=== PATIENT | female | born 1950 | race Caucasian/White ===

== ENCOUNTER 2017-01-06 08:01 | Inpatient (IN) | payer MEDICARE, MEDICAID ==
[~2017-01-06] VITALS: Ht 170.2 cm; Wt 61.2 kg
[2017-01-06] VITALS (7 sets, daily range): BP systolic 84–148; BP diastolic 70–84; PULSE 94–119; RESP 16–26; O2SAT 95–98
[~2017-01-06 08:01] MED LIST: ALEN70TA2 PO; BACL10TA PO; Docusate Sodium PO; OXYB5TAB10 PO; POLY17PO6 PO; SENN-133 PO
--- NOTE | 2017-01-06 08:11 | ED.REPORT ---
HPI-General Illness Date of Service Jan 06, 2017 ED Provider: Tamar Louis Patient is a 66 year old female with a hx of MS who presents to the ED via EMS complaining of SOB onset yesterday. Associated symptoms include sore throat, cough, runny nose, and chest congestion. Pt reports that it feels like she has phlegm in her throat but cannot clear it due to her MS. She had a POX of 91% on room air when medics arrived. She denies fever, vomiting, diarrhea, dysuria, abdominal pain, rash, or any other symptoms. Nursing Notes Stated Complaint: SHORTNESS OF BREATH Chief Complaint: Respiratory Complaints Nursing Notes Reviewed: Yes Allergies: Coded Allergies: codeine (Verified Allergy, Severe, Shortness of Breath, 01/06/17) prochlorperazine (Verified Allergy, Severe, Hallucinations, 01/06/17) promethazine (Verified Allergy, Severe, Hallucinations, 01/06/17) Uncoded Allergies: Mitoxantrone (Allergy, Unknown, 05/04/03) Scheduled Alendronate Sodium (Fosamax) 70 Mg Tablet 70 MG PO Qwednesday Baclofen (Baclofen) 10 Mg Tablet 5 MG PO TID Magnesium Oxide (Magnesium Oxide) 400 Mg Tablet 400 MG PO DAILY Methylcellulose 1500CPS (Methylcellulose) 2,500 Gm Powder 2,500 GM MC DAILY Scheduled PRN Oxybutynin Chloride (Oxybutynin Chloride) 5 Mg Tablet 5 MG PO HS PRN PRN For Spasm Polyethylene Glycol 3350 (Miralax) 17 Gm Powd.pack 17 GM PO DAILY PRN PRN For Constipation To be used if no bowel movent in 2 days, and Senna is not effective. General Time Seen by MD: 08:10 Chief Complaint Breathing problem Hx Obtained From: Patient, Other family... Arrived By: Ambulance Sudden in Onset?: Yes Onset Occurred: Yesterday Symptom Duration: Since onset Recent Healthcare: Recent doctor visit Past Medical History Past Medical History Multiple sclerosis. Paraplegia. Urinary retention requiring chronic catheterization. h/o multiple UTI Osteoporosis. h/o TB in past Right hip fracture/Lateral condyle fracture (non operable) Past Surgical History multiple urologic procedures suprapubic catheter Family History Noncontributory Smoking History Never Smoker Social History Has caretake at home Other Social History: Local resident Ambulatory Status Wheelchair Review of Systems +chest congestion Full Review of Systems Constitutional: Denies: Fever Ears / Nose / Throat: Reports: Sore throat Respiratory: Reports: Non-productive cough, Shortness of breath GI: Denies: Abdominal pain, Diarrhea, Vomiting Female: Denies: Dysuria Skin: Denies Rash Allergy / Immune: Reports: Rhinorrhea Complete sys rev & neg: except as marked. Physical Exam Vital Signs Vital Signs Date Time Temp Pulse Resp B/P Pulse Ox O2 Delivery O2 Flow Rate FiO2 01/06/17 09:15 36.5 111 19 148/84 98 Nasal Cannula 3 01/06/17 08:06 37.1 119 24 144/70 95 Nasal Cannula 3 Initial VS: Reviewed, Vital signs abnormal Skin: Warm, Dry Psychiatric: Mood/affect normal, Behavior normal, Normal thought content General/Constitutional: Awake, Alert Head / Eyes: Atraumatic, Normocephalic ENT: Airway patent No pharyngeal erythema Geographical tongue Neck: Atraumatic, No adenopathy Respiratory / Chest: Atraumatic, No wheezing Coarse breath sounds on the L side Heart Rate / Rhythm: Positive: Tachycardia Abdomen: Atraumatic, Soft Neurologic: Oriented X3, Speech NL Awake, alert and appropriate Globally weak with minimal reflexes Functionally a quadriplegic due to her MS Interpretation & Diagnostics Lab Results Interpretation Result Diagram: 01/06/17 0805 01/06/17 0805 Test 01/06/17 08:05 01/06/17 08:40 01/06/17 08:47 White Blood Count 13.9th/mm3 (3.8-10.1) Red Blood Count 4.78mil/mm3 (3.90-5.20) Hemoglobin 13.6g/dL (12.0-15.6) Hematocrit 40.0% (35.0-46.0) Mean Corpuscular Volume 83.7fL (81-100) Mean Corpuscular Hemoglobin 28.5pg (27.0-35.0) Mean Corpuscular Hemoglobin Concent 34.0% (32.0-37.0) Red Cell Distribution Width 15.0% (12.3-15.4) Platelet Count 341bil/L (150-400) Neutrophils (%) (Auto) 89.5% (40-74) Lymphocytes (%) (Auto) 3.2% (14-46) Monocytes (%) (Auto) 7.1% (4-12) Eosinophils (%) (Auto) 0% (0-5) Basophils (%) (Auto) 0.1% (0-3) Sodium Level 135mEq/L (134-144) Potassium Level 4.0mEq/L (3.5-5.2) Chloride Level 97mEq/L (97-108) Carbon Dioxide Level 22mmol/L (18-29) Blood Urea Nitrogen 14mg/dL (8-27) Creatinine 0.43mg/dL (0.57-1.00) Estimat Glomerular Filtration Rate 212mL/min (>59) Glucose Level 119mg/dL (60-99) Calcium Level 9.6mg/dL (8.5-10.1) Total Bilirubin 0.4mg/dL (0.0-1.2) Aspartate Amino Transf (AST/SGOT) 38U/L (0-50) Alanine Aminotransferase (ALT/SGPT) 41U/L (0-32) Alkaline Phosphatase 116U/L (25-165) Troponin T 0.010ug/L (0.0-0.011) Pro-B-Type Natriuretic Peptide 325.8pg/mL (0-287) Total Protein 8.0g/dL (6.4-8.4) Albumin 4.0g/dL (3.4-5.0) Lactic Acid Level 0.9mmol/L (0.4-2.0) Urine Color Straw (YELLOW) Urine Appearance Slightly cloudy Urine pH 7.5 (5.0-8.0) Urine Specific [place] 1.015 (1.003-1.035) Urine Protein Tracemg/dL (NEG,TRACE) Urine Glucose (UA) Negativemg/dL (NEGATIVE) Urine Ketones Negativemg/dL (NEGATIVE) Urine Occult Blood Sm (NEGATIVE) Urine Nitrite Positive (NEGATIVE) Urine Bilirubin Negative (NEGATIVE) Urine Urobilinogen Normalmg/dL (NORMAL) Urine Leukocyte Esterase Large (NEGATIVE) Urine RBC 0-2/hpf (0-2) Urine WBC 11-50/hpf (0-5) Urine Epithelial Cells Occasional/hpf (NONE-MOD) Urine Crystals Amorphous phosphates Urine Bacteria Many/hpf (NONE-FEW) Urine Hyaline Casts None/lpf (NONE) Urine Granular Casts None seen (NONE SEEN) Urine Waxy Casts None seen (NONE SEEN) Urine Red Blood Cell Casts None seen (NONE SEEN) Urine White Blood Cell Casts None seen (NONE SEEN) Urine Mucus None seen (None Seen) Urine Trichomonas None seen (NONE SEEN) Urine Yeast None (NONE SEEN) Urinalysis Comment None Urine Culture Reflexed Indicated ECG Interpretation ECG Interpretation: Sinus tachycardia w/poor baseline Rate 111 LVH with secondary repolarization abnormality Prolonged QT interval Time: 08:34 Interpreted by: ED physician X-Ray Chest Interpretation Chest Xray Interpretation: IMPRESSION: Right lower lobe pneumonia, no pleural effusion or central mass seen. Dictated by: David Balderas M.D. on 01/06/2017 at 8:30 Approved by: David Bladeras M.D. on 01/06/2017 at 8:31 View: Portable, 1 view Interpretation / Wet Read by: Interpret - Radiologist Re-Eval/Medical Decision Med Decision/Clinical Course 66-year-old woman with multiple sclerosis who is a functional quadriplegic presents with 24 hours of worsening pulmonary symptoms and inability to clear secretions. Exam, chest x-ray, lab work all suggest pneumonia which is consistent with complaints. IV antibiotics were started. There is no evidence of sepsis. Because of her significantly compromised status due to her MS will opt for admission and IV antibiotics until she clearly is improving and can safely transition to oral antibiotics Time of Eval: 09:56 Re-Evaluation/Progress Note: Discussed plan for admission. Patient understands and agrees with plan. All questions addressed at this time. Consultation : Referral / Consult Name: Nael Lundy MD Consulted With: Hospitalist Call Returned at: 11:24 Maintenance Mechanic Helper: Will see patient, Agrees with eval, Agrees with plan, Accepts admit Note: Discussed pt's case. Accepts admit. Counseled Regarding: Diagnosis, Lab results, Need for admission Discharge & Departure Primary Impression: Pneumonia Pneumonia type: due to unspecified organism Laterality: unspecified laterality Lung location: unspecified part of lung Qualified Code: J18.9 - Pneumonia, unspecified organism Disposition: ADMITTED TO HOSPITAL Discharge Condition All VS Reviewed: Yes Condition: Stable Referrals: Sherry Lewis Attestation Portions of this note were transcribed by Lola Perrin. I, Dr. Louis personally performed the history, physical exam and medical decision-making; I reviewed and confirmed the accuracy of the information in the transcribed note. Signed by: Aaron Hidalgo, 01/06/17 copies to: Sherry Lewis Shawna L MD Jan 06, 2017 08:11 LOLA PERRIN Jan 06, 2017 09:57
[2017-01-06 08:18] LABS: BASOPHILS % (AUTO) 0.1 % (0-3); EOSINOPHILS % (AUTO) 0 % (0-5); MONOCYTES % (AUTO) 7.1 % (4-12); Mean Corpuscular Hemoglobin 28.5 pg (27.0-35.0); Mean Corpuscular Volume 83.7 fL (81-100); NEUTROPHILS % (AUTO) 89.5 % (40-74); Platelet Count 341 bil/L (150-400)
--- NOTE | 2017-01-06 08:33 | DRSVH ---
PROCEDURE: X-RAY CHEST ONE VIEW, PORTABLE ([id number]) INDICATIONS: dyspnea TECHNIQUE: One view of the chest was acquired. COMPARISON: [facility], CR, XR CHEST 1VW (PORTABLE), 02/13/2016, 12:52. [facility], CR, XR CHEST 1VW (PORTABLE), 02/13/2016, 11:41. FINDINGS: Surgical changes and devices: None. Lungs and pleura: No pleural effusions or pneumothorax. Lungs are abnormal with the right lower lob e pneumonia pattern superimposed on reduced inspiratory volume. Mediastinum: Mediastinal contours appear normal. Heart size is normal. Bones and chest wall: No suspicious bony lesions. Overlying soft tissues appear unremarkable. IMPRESSION: Right lower lobe pneumonia, no pleural effusion or central mass seen. Dictated by: David Balderas M.D. on 01/06/2017 at 8:30 Approved by: David Balderas M.D. on 01/06/2017 at 8:31
[2017-01-06 09:15] LABS: TROPONIN T 0.01 ug/L (0.0-0.011)
[2017-01-06] MEDS ORDERED: Azithromycin Inj 500 MG in Dextrose 5% w/Vial Mate 250 ML IV ONE (10:00)
[2017-01-06] MEDS ORDERED: cefTRIAXone Inj 2,000 MG in Dextrose 5% Minibag Plus 50 ML IV ONE (10:00)
[2017-01-06 10:33] LABS: APPEARANCE,URINE SLIGHTLY CLOUDY (CLEAR,HAZY); COLOR,URINE STRAW (YELLOW); OCCULT BLOOD,URINE SM (NEGATIVE); PH,URINE 7.5 (5.0-8.0); UROBILINOGEN,URINE NORMAL (NORMAL)
[2017-01-06] MEDS ORDERED: [UNRECOGNIZED DRUG - CODE] MC (11:21)
[2017-01-06] MEDS ORDERED: MAGN400T4 PO (11:21)
--- NOTE | 2017-01-06 12:16 | PCM.HPMED ---
Subjective Date of Service Jan 06, 2017 Primary Provider: Admitting Physician: Nael Lundy MD Primary Care Physician: Sherry Lewis DO Attending Physician: Nael Lundy MD Admit Status: From the Emergency Department, Admit to Green Team Chief Complaint: SOB with cough History of Present Illness: 65 year-old female with fairly long standing history of advanced multiple sclerosis with resulting paraplegia of lower extremities, decreased use of upper extremities and neurogenic bladder s/p suprapubic catheter in 2012 presenting with sore throat, productive cough, chest congestion for 1 day. She says that she felt fine Wednesday. Symptoms initially started with runny nose and sore throat Wednesday. Says that noticed increased secretions and had difficulty bringing up due to her weak cough. Denies any significant fever or chills. Denies any history of pneumonia in the past. Nonsmoker. Does not history of obstructive sleep apnea or other respiratory conditions. Does often get UTIs however those are symptomatically concurrently she denies any symptoms of suprapubic tenderness or back pain. Denies fever, vomiting, diarrhea, dysuria, abdominal pain, rash, or any other symptom Per EMS, sat at 91% on Room Air upon arrival. Chest x-ray showed right lower lobe pneumonia Was given azithromycin and ceftriaxone in the ED Review of Systems: 12 point ROS negative except that in HPI. Allergies Coded Allergies: codeine (Verified Allergy, Severe, Shortness of Breath, 01/06/17) prochlorperazine (Verified Allergy, Severe, Hallucinations, 01/06/17) promethazine (Verified Allergy, Severe, Hallucinations, 01/06/17) Uncoded Allergies: Mitoxantrone (Allergy, Unknown, 05/04/03) Home Medications Alendronate Sodium (Fosamax) 70 Mg Tablet 70 MG PO Qwednday Baclofen (Baclofen) 10 Mg Tablet 5 MG PO TID Magnesium Oxide (Magnesium Oxide) 400 Mg Tablet 400 MG PO DAILY Methylcellulose 1500CPS (Methylcellulose) 2,500 Gm Powder 2,500 GM MC DAILY Scheduled PRN Oxybutynin Chloride (Oxybutynin Chloride) 5 Mg Tablet 5 MG PO HS PRN PRN For Spasm Polyethylene Glycol 3350 (Miralax) 17 Gm Powd.pack 17 GM PO DAILY PRN PRN For Constipation To be used if no bowel movent in 2 days, and Senna is not effective. PMH Multiple sclerosis. Paraplegia. Neurogenic bladder s/p suprapubic catheter placed in 2012 h/o recurrent UTI Osteoporosis. Right hip fracture/Lateral condyle fracture (non operable) Surgical History s/p suprapubic catheter placed in 2012 Family History Father with [place] at age 68 Social History Hx Alcohol Use: No Hx Substance Use: No Hx Tobacco Use: No Smoking Status: Never Smoker Exam Vital Signs Vital Sign - Last Date Time Temp Pulse Resp B/P Pulse Ox O2 Delivery O2 Flow Rate FiO2 01/06/17 11:54 36.5 111 19 148/84 98 Nasal Cannula 3 Exam Gen: NAD, AOx4, HEENT: NCAT, PERRLA, EOMI, MMM, sclera anicteric. Neck: Soft, supple, no thyromegaly/JVD/LAD. Resp: CTAB, Dec BS RLL +Prod Cough. CV: S1 S2, RRR, No M/R/G Abd: Soft, (+) BS, NT/ND, Suprapubic Catheter- site looks c/d/i. No suprapubic tenderness. Ext: +PP, No edema. Skin: warm/dry/intact Neuro/Psych: Cooperative, appr mood/affect. CN II-XII grossly intact. No sensory deficits. +paraplegia of lower extremities, decreased strength upper extremities with hand contractures. Lab and Diagnostics Result Diagram: 01/06/1780401/06/17804 X-Rays, CTs and MRIs 01/06/17- CXR- Right lower lobe pneumonia, no pleural effusion or central mass seen 12-lead ECG ECG Interpretation: Sinus tachycardia w/poor baseline Rate 111 LVH with secondary repolarization abnormality Prolonged QT interval Time: 08:34 Interpreted by: ED physician Assessment & Plan 65 year-old female with fairly long standing history of advanced multiple sclerosis with resulting paraplegia of lower extremities, decreased use of upper extremities and neurogenic bladder s/p suprapubic catheter in 2012 p/w sore throat, productive cough, chest congestion likely due to RLL PNA per CXR. Sepsis due to Acute RLL PNA- poa, active- WBC- 13.9. HR- 119. Sx of URI. 01/06/17- CXR- Right lower lobe pneumonia, no pleural effusion or central mass seen. Productive cough. Blood Cx, Sputum Cx. Viral Panel- negative. Continue Abx- Ceftriaxone and Azithromycin for now. Follow up cx's. If clinically deteriorates, consider CT Chest Repeat CBC in am. SOB- poa, active- likely 2/2 to PNA as above. Consider PE, less likely. -Pulmonary Hygeine to mobilize secretions- IS/Acapella/RT. Dysphagia- poa, active- Pt at risk of Long QTc- poa, active. Per EKG. Avoid QT Prolonging meds. Neurogenic bladder s/p suprapubic catheter in 2012- chronic, stable. UA- +pyuria.Likely chronic colonization. - Symptoms difficult to correlate given Paraplegia. Pt says usually has abd pain or back pain which she currently denies. Pt will be getting covered for UTI with above PNA treatment. Advanced multiple sclerosis with resulting paraplegia of lower extremities, decreased use of upper extremities- chronic, stable. - Continue with hm meds. - c/w supportive care Acetaminophen for mild pain when necessary. Bowel regimen Senna and MiraLAX scheduled and PRN. Code- Full. Status- Patient is admitted under inpatient status expected length of stay greater than 2 midnights due to severity of presenting symptoms, risk of adverse events, and complexity of treatment plan. Pain Evaluation: Adequate Pain Control VTE Prophylaxis: Sub-Q Heparin (Unfractionated) Resuscitation Status: CPR: Attempt Resuscitation Time spent Greater than 45 minutes Nael Lundy MD Jan 06, 2017 12:15
[2017-01-06] MEDS ORDERED: Polyethylene Glycol (PEG) 17 Gm Powder PO PRN (12:50)
[2017-01-06] MEDS ORDERED: Alum-Mag Hydrox-Simeth 30 mL Suspension PO PRN (12:50)
--- NOTE | 2017-01-06 14:10 | NUR ---
Evaluation completed. Please go to "Notes" then click on "Assessments and Notes" (bottom left corner of screen). Then select appropriate discipline tab on top of screen.
[2017-01-06] MEDS: 0.9% Sodium Chloride 1,000 ML IV SCH ×2 (15:06→20:29)
--- NOTE | 2017-01-06 16:04 | NUR ---
ADMIT Admitted a 66/F into room 3002 following report from LUIS Varghese RN. Pt arrived via stretcher, req 4 person transfer to bed from [facility] to ensure safety and limit discomfort. Pt has advanced MS which has resulted in an inability to move LE/UE's due to contracture. Pt provided a soft call light and introduced to staff, bed/call light controls and to call staff to assist with changing channel/volume. Pt on TELE: SR in the 90's per vascular technologist. IV SL. Pt on 3L due to feeling SOB at rest, with activity, etc. She does NOT wear [address] up to eval swallow and placed pt on a strict NPO status - including medications due to high aspiration risk. Barium swallow ordered for tomorrow. Pt has a suprapubic melo in place, patent and draining kevin urine to gravity. Pt comes from home with caregivers. Bed in lowest, locked position and soft-touch call light in reach.
[2017-01-06] MEDS: Clindamycin Inj 600 MG in IV Premix 1 EACH IV SCH (16:57)
[2017-01-06] MEDS: Heparin 5,000 Unit/mL Inj SUBQ SCH (17:02)
[2017-01-07] VITALS (9 sets, daily range): BP systolic 110–150; BP diastolic 58–72; PULSE 84–107; RESP 17–20; O2SAT 93–97
[2017-01-07] MEDS: Clindamycin Inj 600 MG in IV Premix 1 EACH IV SCH ×4 (00:55→23:42)
[2017-01-07] MEDS: Heparin 5,000 Unit/mL Inj SUBQ SCH ×4 (00:55→23:42)
--- NOTE | 2017-01-07 06:18 | NUR ---
respiratory on 3L O2 via NC sating mid 90s. Pt has weak cough; no s/s of respiratory distress. Afebrile. IV ABT given per order. soft call light by pt's neck due to MS; hourly rounding done.
[2017-01-07] MEDS: Azithromycin Inj 500 MG in Dextrose 5% w/Vial Mate 250 ML IV SCH (08:20)
[2017-01-07 08:30] LABS: BASOPHILS % (AUTO) 0.1 % (0-3); EOSINOPHILS % (AUTO) 0 % (0-5); MONOCYTES % (AUTO) 6.4 % (4-12); Mean Corpuscular Hemoglobin 28.2 pg (27.0-35.0); Mean Corpuscular Volume 85.1 fL (81-100); NEUTROPHILS % (AUTO) 86.1 % (40-74); Platelet Count 300 bil/L (150-400)
[2017-01-07] MEDS: cefTRIAXone Inj 2,000 MG in Dextrose 5% Minibag Plus 50 ML IV SCH (10:22)
--- NOTE | 2017-01-07 12:42 | NUR ---
Social Work-initial assessment/multidisciplinary rounds: Data:See initial assessment. Pt is 66 y/o female who was admitted on 01/06/17 for pneumonia per H&P. Pt's insurance is [facility] and [facility] and PCP is Hailey Lewis DO. EMR reviewed. SW met with pt at bedside to discuss discharge planning, SW role explained. Pt is alert and oriented x3. Pt resides at home and is a paraplegic, pt has caregivers that come in 3 times a day. Pt is a gianfranco lift at baseline to a w/c and does not drive. Pt has HH history with [facility] and states she is currently open with services. Pt has SNF history at [facility] and [facility]. Pt has no revenue inspector care insurance or VA benefits. SW discussed DPOA/ advanced directive, pt confirms this has been completed, SW encouraged a copy to be brought in. Pt's EDIN CM is Nancy Rasmussen, updated clinicals faxed. Pt declines having SW call her sister, stating she will keep her up to date. Pt does not have capacity for self care due to requiring caregiving assistance at baseline. SW provided pt with discharge planning checklist and encouraged her to call with any questions, phone number provided on white board in the room. MD order received for Resume HH services. ROBERT spoke with Vu Tesfaye with [facility] and provided him with access. ROBERT also spoke with pt's caregiving agency [facility] and spoke with Harriet. Harriet confirms that when pt is discharged SW will need to call [facility] and inform them so they can get caregivers set up for her at home. Pt will likely need BLS transport. SW will continue to follow. Assessment:Pt who has caregiver support at home. Plan:Pt to discharge home when medically stable via BLS. SW will need to notify [facility] on day of discharge to coordinate caregivers. Pt will need resume HH orders at discharge. SW will continue to follow. KIMBERLYN Coley Addendum: 01/07/17 at 1253 by NANCY SCHAEFFER SS Amended: Links added.
--- NOTE | 2017-01-07 13:10 | NUR ---
Off unit Pt off unit for swallow study, [email or web address] aware. Addendum: 01/07/17 at 1355 by NISHA GARCIA RN Pt back on unit from swallow study, safety relief valve technician aware.
--- NOTE | 2017-01-07 13:51 | NUR ---
Barium swallow study completed. Please go to "Notes" then click on "Assessments and Notes" (bottom left corner of screen). Then select appropriate discipline tab on top of screen.
--- NOTE | 2017-01-07 13:58 | PCM.PNMED ---
Subjective Date of Service Jan 07, 2017 Subjective Pt has been NPO pending MBS. Exam Vital Signs Vital Sign - Last Date Time Temp Pulse Resp B/P Pulse Ox O2 Delivery O2 Flow Rate FiO2 01/07/17 09:59 37.1 84 18 110/65 96 Nasal Cannula 2.50 Intake and Output 01/06/17 01/06/17 01/07/17 Cumulative From/Thru 15:00 23:00 07:00 01/06/17 08:06 - 01/07/17 06:17 Intake Total 500 ml 0 ml 1091 ml 1591 ml Output Total 150 ml 250 ml 400 ml Balance 500 ml -150 ml 841 ml 1191 ml Intake Oral 0 ml 0 ml 0 ml IV Total 500 ml 1091 ml 1591 ml Output Urine Total 150 ml 250 ml 400 ml # Bowel Movements 1 0 1 Exam Gen: NAD, AOx4, HEENT: NCAT, PERRLA, EOMI, MMM, sclera anicteric. Neck: Soft, supple, no thyromegaly/JVD/LAD. Resp: CTAB, Dec BS RLL +Prod Cough. CV: S1 S2, RRR, No M/R/G Abd: Soft, (+) BS, NT/ND, Suprapubic Catheter- site looks c/d/i. No suprapubic tenderness. Ext: +PP, No edema. Skin: warm/dry/intact Neuro/Psych: Cooperative, appr mood/affect. CN II-XII grossly intact. No sensory deficits. +paraplegia of lower extremities, decreased strength upper extremities with hand contractures. IVs and Medications Medications Reviewed: Medications were reviewed in detail Lab and Diagnostics Result Diagram: 01/07/17 0750 01/06/17 0805 X-Rays, CTs and MRIs 01/06/17- CXR- Right lower lobe pneumonia, no pleural effusion or central mass seen 12-lead ECG ECG Interpretation: Sinus tachycardia w/poor baseline Rate 111 LVH with secondary repolarization abnormality Prolonged QT interval Time: 08:34 Interpreted by: ED physician Assessment & Plan 65 year-old female with fairly long standing history of advanced multiple sclerosis with resulting paraplegia of lower extremities, decreased use of upper extremities and neurogenic bladder s/p suprapubic catheter in 2012 p/w sore throat, productive cough, chest congestion likely due to RLL PNA per CXR. Sepsis due to Acute RLL PNA- poa, active- WBC- 13.9. HR- 119. Sx of URI. 01/06/17- CXR- Right lower lobe pneumonia, no pleural effusion or central mass seen. Productive cough. Blood Cx, Sputum Cx. Viral Panel- negative. Continue Abx- Ceftriaxone and Azithromycin for now. Follow up cx's. If clinically deteriorates, consider CT Chest Repeat CBC in am. SOB- poa, active- likely 2/2 to PNA as above. Consider PE, less likely. -Pulmonary Hygiene to mobilize secretions- IS/Acapella/RT. Dysphagia- poa, active- Pt at risk of aspiration. FOREST ECONOMICS PROFESSOR following, 01/07 MBS to be done. NPO until then. Long QTc- poa, active. Per EKG. Avoid QT Prolonging meds. Neurogenic bladder s/p suprapubic catheter in 2012- chronic, stable. UA- +pyuria.Likely chronic colonization. - Symptoms difficult to correlate given Paraplegia. Pt says usually has abd pain or back pain which she currently denies. Pt will be getting covered for UTI with above PNA treatment. Advanced multiple sclerosis with resulting paraplegia of lower extremities, decreased use of upper extremities- chronic, stable. - Continue with hm meds. - c/w supportive care Acetaminophen for mild pain when necessary. Bowel regimen Senna and MiraLAX scheduled and PRN. Code- Full. Status- Patient is admitted under inpatient status expected length of stay greater than 2 midnights due to severity of presenting symptoms, risk of adverse events, and complexity of treatment plan. VTE Prophylaxis: Sub-Q Heparin (Unfractionated) VTE Mechanical Devices: Intermittant Pneumatic CD Resuscitation Status: CPR: Attempt Resuscitation Nael Lundy MD Jan 07, 2017 13:58
[2017-01-07] MEDS: 0.9% Sodium Chloride 1,000 ML IV SCH ×2 (16:20→23:45)
--- NOTE | 2017-01-07 17:08 | DRSVH ---
PROCEDURE: X-RAY BARIUM SWALLOW WITH FOOD & VIDEOGRAPHY ([id number]) INDICATIONS: RLL PNA, poor bedside presentation TECHNIQUE: Examination was conducted in conjunction with speech pathology per standard protocol. In the lateral projection, filming was performed of the patient swallowing. AP projection filming may also be performed with patient swallowing. COMPARISON: None. FINDINGS: Function: The oral preparatory phase appears normal, with proper containment. The subsequent oral pr opulsive phase, pharyngeal phase, and esophageal phase of swallowing also appear normal with all prof fered substances. Mild vallecular pooling noted on several occasions. There is mild laryngeal penet ration on 2 separate occasions with nectar thin liquids. The attending physician was personally prese nt in the room during the examination. Morphology: No cricopharyngeal bar is identified. No cervical esophageal webs. No Zenker's diverti culum. No strictures. IMPRESSION: 1. Laryngeal penetration with nectar thin liquids. 2. Mild vallecular pooling. Dictated by: Carter Pierre [facility] Interpreted: Sherlyn Lara MD on 01/07/2017 at 14:48 Approved by: Sherlyn Lara MD, PhD on 01/07/2017 at 17:05
--- NOTE | 2017-01-07 18:37 | NUR ---
02 Pt on 3L via NC at beginning of shift. Titrated down to 1L via NC, pt sats 96-97% on 1L. Denies any SOB/distress at this time. Pt aware to notify staff if feeling SOB or any distress.
[2017-01-08 00:13] VITALS: BP 133/70; PULSE 101; RESP 18; O2SAT 96
--- NOTE | 2017-01-08 03:33 | NUR ---
sleep patient resting well.catheter patent. repositioned every 2 hours. adjusted blankets given supportive care.
[2017-01-08 05:22] VITALS: BP 142/64; PULSE 100; RESP 18; O2SAT 97
[2017-01-08 05:46] VITALS: PULSE 77
[2017-01-08 08:00] VITALS: PULSE 82
[2017-01-08 08:32] LABS: BASOPHILS % (AUTO) 0.1 % (0-3); EOSINOPHILS % (AUTO) 0.3 % (0-5); MONOCYTES % (AUTO) 6.3 % (4-12); Mean Corpuscular Hemoglobin 28.3 pg (27.0-35.0); Mean Corpuscular Volume 85.6 fL (81-100); NEUTROPHILS % (AUTO) 85.4 % (40-74); Platelet Count 276 bil/L (150-400)
[2017-01-08] MEDS: Clindamycin Inj 600 MG in IV Premix 1 EACH IV SCH (08:32)
[2017-01-08] MEDS: Heparin 5,000 Unit/mL Inj SUBQ SCH ×2 (08:32→15:52)
[2017-01-08] MEDS: Azithromycin Inj 500 MG in Dextrose 5% w/Vial Mate 250 ML IV SCH (09:40)
[2017-01-08] MEDS: cefTRIAXone Inj 2,000 MG in Dextrose 5% Minibag Plus 50 ML IV SCH (11:09)
--- NOTE | 2017-01-08 13:49 | PCM.PNMED ---
Subjective Date of Service Jan 08, 2017 Subjective Pt reports improved SOB overnight. Denies fever/chills. Exam Vital Signs Vital Sign - Last Date Time Temp Pulse Resp B/P Pulse Ox O2 Delivery O2 Flow Rate FiO2 01/08/17 08:30 Supplement Oxygen 01/08/17 08:00 82 01/08/17 05:22 36.4 18 142/64 97 1.00 Intake and Output 01/07/17 01/07/17 01/08/17 Cumulative From/Thru 15:00 23:00 07:00 01/06/17 08:06 - 01/08/17 05:53 Intake Total 853 ml 616 ml 1025 ml 4085 ml Output Total 250 ml 805 ml 1455 ml Balance 853 ml 366 ml 220 ml 2630 ml Intake Oral 250 ml 100 ml 350 ml IV Total 853 ml 366 ml 925 ml 3735 ml Output Urine Total 250 ml 800 ml 1450 ml Urine/Stool Mix 5 ml 5 ml # Bowel Movements 2 3 Exam Gen: NAD, AOx4, HEENT: NCAT, PERRLA, EOMI, MMM, sclera anicteric. Neck: Soft, supple, no thyromegaly/JVD/LAD. Resp: CTAB, Dec BS RLL +Prod Cough. CV: S1 S2, RRR, No M/R/G Abd: Soft, (+) BS, NT/ND, Suprapubic Catheter- site looks c/d/i. No suprapubic tenderness. Ext: +PP, No edema. Skin: warm/dry/intact Neuro/Psych: Cooperative, appr mood/affect. CN II-XII grossly intact. No sensory deficits. +paraplegia of lower extremities, decreased strength upper extremities with hand contractures. IVs and Medications Medications Reviewed: Medications were reviewed in detail Lab and Diagnostics Result Diagram: 01/08/17 0808 01/06/17 0805 X-Rays, CTs and MRIs 01/06/17- CXR- Right lower lobe pneumonia, no pleural effusion or central mass seen 12-lead ECG ECG Interpretation: Sinus tachycardia w/poor baseline Rate 111 LVH with secondary repolarization abnormality Prolonged QT interval Time: 08:34 Interpreted by: ED physician Assessment & Plan 65 year-old female with fairly long standing history of advanced multiple sclerosis with resulting paraplegia of lower extremities, decreased use of upper extremities and neurogenic bladder s/p suprapubic catheter in 2012 p/w sore throat, productive cough, chest congestion likely due to RLL PNA per CXR. Sepsis due to Acute RLL PNA- poa, active- WBC- 13.9. HR- 119. Sx of URI. 01/06/17- CXR- Right lower lobe pneumonia, no pleural effusion or central mass seen. Productive cough. Blood Cx, Sputum Cx. Viral Panel- negative. Abx- Ceftriaxone and Azithromycin, Clindamycin started 01/07. Blood Cx have been ngtd. Changed to PO Augmentin 875mg BID 01/08 to continue total 7 days treatment to end 01/13/17. - If clinically deteriorates, consider CT Chest - Check CXR. - Follow up with PCP 1 week. - Repeat imaging in 4-6 weeks to monitor for resolution. SOB- poa, active- likely 2/2 to PNA as above. On Oxygen, titrate off. -Pulmonary Hygiene to mobilize secretions- IS/Acapella/RT. Dysphagia- poa, active- Pt at risk of aspiration due to functional limitation from MS. CXR could be showing pnuemonitis pattern rather than PNA. 01/07- MBS- mild oral and moderate pharyngeal stage dysphagia MASH PREPARATORY OPERATOR recs diet of regular solids, honey thick liquids on 01/07, will advance per MASH PREPARATORY OPERATOR. Long QTc- poa, stable. Per EKG. Avoid QT Prolonging meds. Neurogenic bladder s/p suprapubic catheter in 2012- chronic, stable. UA- +pyuria.Likely chronic colonization. - Symptoms difficult to correlate given Paraplegia. Pt says usually has abd pain or back pain which she currently denies. Pt will be getting covered for UTI with above PNA treatment. Advanced multiple sclerosis with resulting paraplegia of lower extremities, decreased use of upper extremities- chronic, stable. - Continue with hm meds. - c/w supportive care Acetaminophen for mild pain when necessary. Bowel regimen Senna and MiraLAX scheduled and PRN. Code- Full. Status- Patient is admitted under inpatient status expected length of stay greater than 2 midnights due to severity of presenting symptoms, risk of adverse events, and complexity of treatment plan. VTE Prophylaxis: Sub-Q Heparin (Unfractionated) VTE Mechanical Devices: Intermittant Pneumatic CD Resuscitation Status: CPR: Attempt Resuscitation Nael Lundy MD Jan 08, 2017 13:49
--- NOTE | 2017-01-08 14:16 | DRSVH ---
PROCEDURE: X-RAY CHEST ONE VIEW, PORTABLE ([id number]) INDICATIONS: PNA, evaluate progression TECHNIQUE: One view of the chest was acquired. COMPARISON: [facility], CR, XR CHEST 1VW (PORTABLE), 02/13/2016, 12:52. [facility], CR, XR CHEST 1VW (PORTABLE), 01/06/2017, 8:25. FINDINGS: Surgical changes and devices: None. Lungs and pleura: Persistent right basilar and perihilar airspace opacity similar to prior examinatio n with interval development of left lung base consolidation. No pneumothorax. Mediastinum: Mediastinal contours appear normal. Heart size is normal. Bones and chest wall: No suspicious bony lesions. Overlying soft tissues appear unremarkable. IMPRESSION: Persistent right basilar and perihilar airspace opacity. New left lung base consistent with pneumonia and/or atelectasis. Recommend radiographic followup to resolution. If findings persist a chest CT w ith contrast will be needed for further evaluation. Dictated by: Carter REYES Interpreted: Jesus Larson MD on 01/08/2017 at 14:13 Transcribed by: ALLISON on 01/08/2017 at 14:15 Approved by: Jesus Larson M.D. on 01/08/2017 at 15:55
--- NOTE | 2017-01-08 14:43 | NUR ---
NUTRITION ASSESSMENT: ASSESS: 66YO F admit with RLL pneumonia, followed by ST for dysphagia. PMHX: MS with lower extremity paraplegia DIET: General. Honey Thick liquids. PO 75% LABS: Alb 4.0 MEDS: Reviewed GI: 2 BM WEIGHT:61.2kg BMI: 21.1 EST.NEEDS: 1500-1850kcal, 60-70g (25-30kcal/kg;1.0-1.2g/kg pro) NUTRITION DIAGNOSIS: (1) Chew/swallow difficulty related to dysphagia as evidenced by modified diet texture per ST. INTERVENTION: (1) Diet per ST. MONITOR/EVALUATE: PO intake, lab values, texture tolerance. F/U per moderate risk.
[2017-01-08 15:30] VITALS: BP 153/74; PULSE 94; RESP 20; O2SAT 93
--- NOTE | 2017-01-08 17:18 | NUR ---
Uneventful day Patient alert and oriented X3. Patient continues to have IV antibiotics. Patient continues to require 1:1 assistance with feeding and Q 2hour turns. Patient has denied pain. Supra-pubic catheter patent and draining to gravity.
[2017-01-08 19:31] VITALS: BP 146/74; PULSE 105; RESP 20; O2SAT 95
[2017-01-08] MEDS: Amoxicillin-Clav 875-125 mg Tablet PO SCH (20:35)
[2017-01-09] MEDS: Heparin 5,000 Unit/mL Inj SUBQ SCH ×3 (01:01→16:08)
[2017-01-09 05:05] VITALS: BP 140/68; RESP 20; O2SAT 96
[2017-01-09] MEDS: Amoxicillin-Clav 875-125 mg Tablet PO SCH ×2 (08:38→16:31)
--- NOTE | 2017-01-09 12:18 | PCM.DC.MED ---
Discharge Summary Date of Service Jan 09, 2017 Dates of Hospitalization Date of Hospital Admission Jan 06, 2017 at 11:22 Date of Discharge: Jan 09, 2017 Providers: Admitting Physician: Nael Lundy MD Primary Care Physician: Sherry Lewis DO Attending Physician: Nael Lundy MD Diagnosis at Time of Discharge Diagnosis at Time of Discharge Sepsis due to Acute RLL PNA- Dysphagia- Long QTc- Neurogenic bladder s/p suprapubic catheter in 2012- Advanced multiple sclerosis with resulting paraplegia of lower extremities, decreased use of upper extremities- e. Procedures XRay, CTs & MRIs 01/06/17- CXR- Right lower lobe pneumonia, no pleural effusion or central mass seen ECG 12 Lead ECG Interpretation: Sinus tachycardia w/poor baseline Rate 111 LVH with secondary repolarization abnormality Prolonged QT interval Time: 08:34 Interpreted by: ED physician Brief History 65 year-old female with fairly long standing history of advanced multiple sclerosis with resulting paraplegia of lower extremities, decreased use of upper extremities and neurogenic bladder s/p suprapubic catheter in 2012 presenting with sore throat, productive cough, chest congestion for 1 day. She says that she felt fine Wednesday. Symptoms initially started with runny nose and sore throat Wednesday. Says that noticed increased secretions and had difficulty bringing up due to her weak cough. Denies any significant fever or chills. Denies any history of pneumonia in the past. Nonsmoker. Does not history of obstructive sleep apnea or other respiratory conditions. Does often get UTIs however those are symptomatically concurrently she denies any symptoms of suprapubic tenderness or back pain. Denies fever, vomiting, diarrhea, dysuria, abdominal pain, rash, or any other symptom Per EMS, sat at 91% on Room Air upon arrival. Chest x-ray showed right lower lobe pneumonia Was given azithromycin and ceftriaxone in the ED Hospital Course 65 year-old female with fairly long standing history of advanced multiple sclerosis with resulting paraplegia of lower extremities, decreased use of upper extremities and neurogenic bladder s/p suprapubic catheter in 2012 p/w sore throat, productive cough, chest congestion likely due to RLL PNA per CXR. Sepsis due to Acute RLL PNA- poa, active- WBC- 13.9. HR- 119. Sx of URI. 01/06/17- CXR- Right lower lobe pneumonia, no pleural effusion or central mass seen. Productive cough. Blood Cx, Sputum Cx. Viral Panel- negative. Abx- Ceftriaxone and Azithromycin, Clindamycin started 01/07. Blood Cx have been ngtd. Changed to PO Augmentin 875mg BID 01/08 to continue total 7 days treatment to end 01/13/17. - 01/08- CXR- showed previous R basilar opacity and new LLL Atelectasis/ Pneumonia. - Pt has clinically improved and is stable for discharge. Afebrile. Off oxygen, WBC resolved. Will need to conn - Follow up with PCP 1 week. Repeat imaging in 4-6 weeks to monitor for resolution. If infiltrates still present would get CT Chest with Contrast. SOB- poa, active- likely 2/2 to PNA as above. On Oxygen, titrate off. -Pulmonary Hygiene to mobilize secretions- IS/Acapella/RT. Dysphagia- poa, active- Pt at risk of aspiration due to functional limitation from MS. CXR could be showing pnuemonitis pattern rather than PNA. See above plan regarding follow imaging as outpatient. -01/07- MBS- mild oral and moderate pharyngeal stage dysphagia -Please use techniques discussed with Speech Therapist when eating. Diet restricted to nectar thick liquids with sips of water between meals. Will need 1 :1 supervision Long QTc- poa, stable. Per EKG. Avoid QT Prolonging meds. Neurogenic bladder s/p suprapubic catheter in 2012- chronic, stable. UA- +pyuria. Asymptomatic. Likely chronic colonization. Advanced multiple sclerosis with resulting paraplegia of lower extremities, decreased use of upper extremities- chronic, stable. - Continue with hm meds. - c/w supportive care Acetaminophen for mild pain when necessary. Bowel regimen Senna and MiraLAX scheduled and PRN. Code- Full. Dispo- Pt has clinically improved and is stable for discharge home with continued treatment of pneumonia as outpatient. Discharge home with BLS. Will need to resume Home Health with Felipa for caregiver assistance. Augmentin 875mg BID 01/08 to continue total 7 days treatment to end 01/13/17. - Please use techniques discussed with Speech Therapist when eating. Diet restricted to nectar thick liquids with sips of water between meals. Will need 1 :1 supervision. - Follow up with primary doctor in 1 week. Will need repeat Chest X-Ray in 2-4 weeks to monitor for resolution. If infiltrates still present would get CT Chest with Contrast to further evaluate. Exam Vital Signs (Last) Date Time Temp Pulse Resp B/P Pulse Ox O2 Delivery O2 Flow Rate FiO2 01/09/17 05:05 36.0 20 140/68 96 Room Air 01/08/17 19:31 105 01/08/17 05:22 1.00 Test 01/06/17 08:05 01/06/17 08:40 01/06/17 08:47 01/08/17 08:08 Sodium Level 135mEq/L (134-144) Potassium Level 4.0mEq/L (3.5-5.2) Chloride Level 97mEq/L (97-108) Carbon Dioxide Level 22mmol/L (18-29) Blood Urea Nitrogen 14mg/dL (8-27) Creatinine 0.43mg/dL (0.57-1.00) Estimat Glomerular Filtration Rate 212mL/min (>59) Glucose Level 119mg/dL (60-99) Calcium Level 9.6mg/dL (8.5-10.1) Total Bilirubin 0.4mg/dL (0.0-1.2) Aspartate Amino Transf (AST/SGOT) 38U/L (0-50) Alanine Aminotransferase (ALT/SGPT) 41U/L (0-32) Alkaline Phosphatase 116U/L (25-165) Troponin T 0.010ug/L (0.0-0.011) Pro-B-Type Natriuretic Peptide 325.8pg/mL (0-287) Total Protein 8.0g/dL (6.4-8.4) Albumin 4.0g/dL (3.4-5.0) Lactic Acid Level 0.9mmol/L (0.4-2.0) Urine Color Straw (YELLOW) Urine Appearance Slightly cloudy Urine pH 7.5 (5.0-8.0) Urine Specific [place] 1.015 (1.003-1.035) Urine Protein Tracemg/dL (NEG,TRACE) Urine Glucose (UA) Negativemg/dL (NEGATIVE) Urine Ketones Negativemg/dL (NEGATIVE) Urine Occult Blood Sm (NEGATIVE) Urine Nitrite Positive (NEGATIVE) Urine Bilirubin Negative (NEGATIVE) Urine Urobilinogen Normalmg/dL (NORMAL) Urine Leukocyte Esterase Large (NEGATIVE) Urine RBC 0-2/hpf (0-2) Urine WBC 11-50/hpf (0-5) Urine Epithelial Cells Occasional/hpf (NONE-MOD) Urine Crystals Amorphous phosphates Urine Bacteria Many/hpf (NONE-FEW) Urine Hyaline Casts None/lpf (NONE) Urine Granular Casts None seen (NONE SEEN) Urine Waxy Casts None seen (NONE SEEN) Urine Red Blood Cell Casts None seen (NONE SEEN) Urine White Blood Cell Casts None seen (NONE SEEN) Urine Mucus None seen (None Seen) Urine Trichomonas None seen (NONE SEEN) Urine Yeast None (NONE SEEN) Urinalysis Comment None Urine Culture Reflexed Indicated White Blood Count 10.2th/mm3 (3.8-10.1) Red Blood Count 3.53mil/mm3 (3.90-5.20) Hemoglobin 10.0g/dL (12.0-15.6) Hematocrit 30.2% (35.0-46.0) Mean Corpuscular Volume 85.6fL (81-100) Mean Corpuscular Hemoglobin 28.3pg (27.0-35.0) Mean Corpuscular Hemoglobin Concent 33.1% (32.0-37.0) Red Cell Distribution Width 15.2% (12.3-15.4) Platelet Count 276bil/L (150-400) Neutrophils (%) (Auto) 85.4% (40-74) Lymphocytes (%) (Auto) 7.4% (14-46) Monocytes (%) (Auto) 6.3% (4-12) Eosinophils (%) (Auto) 0.3% (0-5) Basophils (%) (Auto) 0.1% (0-3) Discharge Medications Discharge Medications Alendronate Sodium (Fosamax) 70 Mg Tablet 70 MG PO Qwednesday (Reported) Baclofen (Baclofen) 10 Mg Tablet 5 MG PO TID (Reported) Magnesium Oxide (Magnesium Oxide) 400 Mg Tablet 400 MG PO DAILY (Reported) Methylcellulose 1500CPS (Methylcellulose) 2,500 Gm Powder 2,500 GM MC DAILY ( Reported) As needed Oxybutynin Chloride (Oxybutynin Chloride) 5 Mg Tablet 5 MG PO HS PRN PRN For Spasm (Reported) Polyethylene Glycol 3350 (Miralax) 17 Gm Powd.pack 17 GM PO DAILY PRN PRN For Constipation To be used if no bowel movent in 2 days, and Senna is not effective. Prescribed by: LUAN MCCLENDON,DO Additional med instructions Augmentin 875mg BID 01/08 to continue total 7 days treatment to end 01/13/17. Followup Plan Disposition: Discharge home with BLS. Will need to resume Home Health with Felip[facility] for caregiver assistance for daily assistance and 1:1 supervision for meals. Follow-up plan - Follow up with primary doctor in 1 week. Will need repeat Chest X-Ray in 2-4 weeks to monitor for resolution. If infiltrates still present would get CT Chest with Contrast to further evaluate. Discharge Diet: Other (Diet restricted to nectar thick liquids with sips of water between meals. Will need 1:1 supervision. ) Patient Instructions - Please use techniques discussed with Speech Therapist when eating. Diet restricted to nectar thick liquids with sips of water between meals. Will need 1 :1 supervision. Follow-up Provider: Aleida Taylor MD Follow-up with PCP in: 1 week Time spent Greater than 30 minutes was spent in preparation of discharge with greater than 50% of that time dedicated to patient counseling and coordination of care. copies to: Aleida Taylor MD, Navdeep MD Jan 09, 2017 12:18
[2017-01-09] MEDS ORDERED: AGM875T PO (12:24)
--- NOTE | 2017-01-09 12:24 | PCM.DIMED ---
Discharge Instructions Date of Service Jan 09, 2017 Dates of Hospitalization Jan 06, 2017 at 11:22 Discharge Diagnosis Discharge Diagnosis Sepsis due to Acute RLL PNA- Dysphagia- Long QTc- Neurogenic bladder s/p suprapubic catheter in 2012- Advanced multiple sclerosis with resulting paraplegia of lower extremities, decreased use of upper extremities- e. Medication Instructions Additional med instructions Conintue antibiotics Augmentin 875mg twice daily for total 7 days of treatment to end 01/13/17. Diet Discharge Diet: Other (Diet restricted to nectar thick liquids with sips of water between meals. Will need 1:1 supervision. ) Patient Instructions Patient Instructions - Please use techniques discussed with Speech Therapist when eating. Diet restricted to nectar thick liquids with sips of water between meals. Will need 1 :1 supervision. Follow-up plan - Follow up with primary doctor in 1 week. Will need repeat Chest X-Ray in 2-4 weeks to monitor for resolution. If infiltrates still present would get CT Chest with Contrast to further evaluate. Follow-up Provider: Aleida Taylor MD Follow-up with PCP in: 1 week Nael Lundy MD Jan 09, 2017 12:24
[2017-01-09 13:42] VITALS: BP 144/73; PULSE 102; RESP 20; O2SAT 96
--- NOTE | 2017-01-09 15:00 | NUR ---
Social Work-Readiness for Discharge/Multidisciplinary Rounds Data: EMR Reviewed. Pt is on day 3 of hospitalization. Pt discussed in multidisciplinary rounds, pt is medically ready for discharge today. Pt requires caregivers in place prior to discharge. Per ROBERT notes, caregivers can be contacted at . ROBERT has placed 4 telephone calls to that phone number today in preparation for pt's discharge. The number links to a voicemail for Caterina De, ROBERT has left four voicemails for her informing her that pt is ready for discharge and she requires caregivers. ROBERT has also placed calls to the [facility] offices which are closed for the weekend. ROBERT verified with pt at bedside of the number to contact caregivers, pt verifies that the above number is what she would dial to coordinate her caregivers as well. SW and pt in agreement that ABSORPTION OPERATOR will continue to contact the above number until 6 pm tonight. If pt's caregivers are unable to be coordinated then pt will have to remain in hospital until these caregivers can be coordinated. Pt agreeable to plan. ROBERT continues to follow. Assessment: Pt who requires caregivers at home, is not capable of self-care Plan: SW attempting to contact pt's caregivers x4. Have been unable to make contact to ensure pt's caregivers are in place. SW will continue to call until 6 pm. If pt's caregivers are unable to be coordinated then pt will have to remain in hospital until these caregivers can be coordinated. Pt agreeable to plan. SW continues to follow. KIMBERLYN Chase
--- NOTE | 2017-01-09 15:22 | NUR ---
Daily update Patient alert and oriented X3. Patient has continued to be Q2 hour turns due to Paraplegia related to MS. Remains 1:1 assistance with feeding. Patient Supra-pubic catheter remains patent and draining to gravity. Patient denied pain. Bed locked and call light with in reach.
--- NOTE | 2017-01-09 16:28 | NUR ---
Social Work- Discharge Data: EMR reviewed. ROBERT received t/c from [facility] catalytic converter operator helper coordinator regarding notification of pt's caregiver. Pt's w/e caregiver is Ananya Harris [phone]. Ananya and WEB APPLICATIONS DEVELOPER coordinated pt's discharge so that Ananya is available when pt returns home. Pt reports that her neighbors are able to let her into her home. BLS order received from . T/C to [facility] regarding transportation. Fredrick confirms that pt will be picked up at 1645 for transport home. PCS form complete. Pt updated of plan and agreeable. Pt notified that BLS transport is not guaranteed to be covered by insurance. Pt stated understanding. Pt to d/c home via ambulance at 1645, caregiver Ananya to meet pt at home. Trudi from [facility] notified of pt's discharge, agreeable and has completed paperwork to resume services. No additional needs. Assessment: Pt who is bedbound, is not capable of self-care at baseline Plan: Pt to d/c home via ambulance at 1645, caregiver Ananya to meet pt at home, resume [facility] services. All updated and agreeable to plan. No additional needs. Tiara Gong, WEB APPLICATIONS DEVELOPER
--- NOTE | 2017-01-09 16:52 | NUR ---
Discharge Patient given discharge orders. Patient given medication list with written times of when next dose due. Patient given hard copy of prescription. Patient given informational packets. Patient left by BLS and caregiver was arranged to meet patient at her home.
== END 2017-01-09 16:51 | disposition home health service (06) | DRG 871 ==
LOC: EDBD 08:01 → SED 08:01 → MPC 11:22
PROVIDERS: ADMIT Internal Medicine; ATTEND Internal Medicine
DX: A41.9 Sepsis, unspecified organism (principal); J18.9 Pneumonia, unspecified organism; R53.2 Functional quadriplegia; N31.9 Neuromuscular dysfunction of bladder, unspecified; G35 Multiple sclerosis; M24.542 Contracture, left hand; M24.541 Contracture, right hand; R13.13 Dysphagia, pharyngeal phase; I10 Essential (primary) hypertension; Z99.3 Dependence on wheelchair; Z87.440 Personal history of urinary (tract) infections